=== PATIENT | female | born 1935 ===

== ENCOUNTER 2018-11-14 09:49 | Emergency (ER) | payer MEDICARE, OTHER ==
--- NOTE | 2018-11-14 11:00 | ED PDOC ---
HPI: General Adult Time Seen by Provider: 11/14/18 10:58 Chief Complaint (Nursing): Trauma Chief Complaint (Provider): fall/chest wall injury History Per: Patient (83 y/o female here for evaluation after fall 4 days ago. Patient states she has h/o right knee pain/tripped and fell at that time landing on right side of chest wall. Denies any head injury/neck pain. Took tylenol for pain.) Past Medical History Reviewed: Historical Data, Nursing Documentation, Vital Signs Vital Signs: Last Vital Signs Temp 98.2 F 11/14/18 10:45 Pulse 75 11/14/18 10:45 Resp 19 11/14/18 10:45 BP 154/97 H 11/14/18 10:45 Pulse Ox 96 11/14/18 10:45 - Medical History PMH: Asthma, HTN - Family History Family History: States: No Known Family Hx - Immunization History Hx Influenza Vaccination: Yes Hx Pneumococcal Vaccination: Yes - Home Medications Home Medications: Ambulatory Orders Medication Instructions Recorded Albuterol HFA 1 puff INH Q4 10/26/13 Plavix 1 tab PO DAILY 10/26/13 Albuterol HFA [Ventolin HFA 90 0.09 mg IH Q4 PRN #1 puff 07/19/15 mcg/actuation (8 g)] Azithromycin 1 tab PO DAILY #4 tab 07/19/15 Benzonatate [Tessalon Perles] 1 sgl PO BID PRN #15 sgl 07/19/15 Prednisone 40 mg PO DAILY #8 tab 07/19/15 Naproxen 375 mg PO Q8 PRN #15 tablet 11/14/18 - Allergies Allergies/Adverse Reactions: Allergies Allergy/AdvReac Type Severity Reaction Status Date / Time No Known Allergies Allergy Verified 11/14/18 10:37 Review of Systems ROS Statement: Except As Marked, All Systems Reviewed And Found Negative Physical Exam - Reviewed Nursing Documentation Reviewed: Yes Vital Signs Reviewed: Yes - Physical Exam Appears: Positive for: Well, Non-toxic, No Acute Distress Head Exam: Positive for: ATRAUMATIC, NORMAL INSPECTION, NORMOCEPHALIC Skin: Positive for: Normal Color, Warm, DRY Eye Exam: Positive for: EOMI, Normal appearance, PERRL ENT: Positive for: Normal ENT Inspection Neck: Positive for: Normal, Painless ROM Cardiovascular/Chest: Positive for: Regular Rate, Rhythm. Negative for: Chest Non Tender (right sided chest wall tenderness noted.) Respiratory: Positive for: CNT, Normal Breath Sounds Gastrointestinal/Abdominal: Positive for: Normal Exam, Soft Back: Positive for: Normal Inspection Extremity: Positive for: Normal ROM, Other (tenderness anterior patella. no effusion. no ecchymosis. able to flex and extend without difficulty.) Neurologic/Psych: Positive for: Alert, Oriented - ECG O2 Sat by Pulse Oximetry: 96 - Progress ED Course And Treament: cxr: no obvious fx/ no pneumothorax knee xry: djd Disposition - Clinical Impression Clinical Impression: Contusion of knee, right, Contusion of rib on right side - Patient ED Disposition Is Patient to be Admitted: No - Disposition Disposition: Routine/Home Disposition Time: 11:54 Condition: FAIR Prescriptions: Naproxen 375 mg PO Q8 PRN #15 tablet PRN Reason: Pain, Moderate (4-7) Instructions: Bruised Rib (DC), Contusion (DC) Print Language: ROMANSH
--- NOTE | 2018-11-14 12:43 | RAD ---
Date of service: 11/14/2018 PROCEDURE: Radiographs of the Chest and Right Ribs. HISTORY: routine COMPARISON: 10/11/2011 single-view chest TECHNIQUE: Frontal radiograph of the chest and multiple oblique radiographs of the right ribs were obtained. FINDINGS: RIGHT RIBS: No fracture or focal lesion visualized. LUNGS: Clear. PLEURA: No pneumothorax or pleural fluid. CARDIOVASCULAR: Normal cardiac size. No pulmonary vascular congestion. Atherosclerotic calcifications identified primarily aortic arch. OTHER FINDINGS: None. IMPRESSION: Unremarkable radiographs of the chest and right ribs. No right rib fracture.
--- NOTE | 2018-11-14 12:45 | RAD ---
Date of service: 11/14/2018 PROCEDURE: Right Knee Radiographs. HISTORY: Trauma COMPARISON: None. FINDINGS: BONES: Normal. No fracture. JOINTS: Medial compartment narrowing with relative sparing of the lateral car met incomplete tele femoral joint. JOINT EFFUSION: None. OTHER FINDINGS: None. IMPRESSION: Mild degenerative change. No acute findings.
[2018-11-14 13:03] VITALS: BP 154/97; PULSE 75; RESP 19; TEMP 98.2; O2SAT 96
== END 2018-11-14 12:14 | disposition home or self-care (01) ==
LOC: H.ER 09:49
DX: S80.01XA Contusion of right knee, initial encounter (principal); S20.211A Contusion of right front wall of thorax, initial encounter; W01.0XXA Fall on same level from slipping, tripping and stumbling without subsequent striking against object, initial encounter; Y92.89 Other specified places as the place of occurrence of the external cause; I10 Essential (primary) hypertension